=== PATIENT | female | born 1995 | race American Indian/Alaskan Native ===

== ENCOUNTER 2021-06-19 18:12 | Emergency (ER) | payer OTHER ==
[2021-06-19 18:45] VITALS: BP 106/76
[2021-06-19] MEDS ORDERED: LIDOCAINE 2% UROJECT 10 ML JELLY UR ONE (19:46)
[2021-06-19] MEDS ORDERED: IBUPROFEN 600 MG TAB PO ONE (19:47)
[2021-06-19] MEDS ORDERED: ONDANSETRON 4 MG ODT TAB PO ONE (19:47)
[2021-06-19] MEDS ORDERED: HYDROcodone/ACETAMINOPHEN 5-325 MG TAB PO ONE (19:47)
--- NOTE | 2021-06-19 22:30 | Emergency Department Report ---
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 Patient states that she applied an imiquimod ointment on this lesions and that the pain got worse in the last 24 h such that she has not been able to sleep or walk because of worsening pain. Patient denies fever, chills, vaginal bleeding, low back pain, abdominal pain, nausea and vomiting, diarrhea, cough, sore throat, headache, dyspareunia or dizziness. MD Complaint: vaginal discharge, dysuria, possible STD, other (Painful genital lesions) -: Sudden, days(s) (3) Location: labia, perineum Radiation: non-radiating Severity: severe Severity scale (0 -10): 9 Quality: sharp, burning Consistency: constant Improves with: none Worsens with: urination, movement Are you Now?: No Last Menstrual Period: 06/06/21 EDC: 03/13/22 Associated Symptoms: denies other symptoms, vaginal discharge, dysuria, rash (Painful vaginal lesions with thick purulent discharge). denies: vaginal bleeding, abdominal pain, nausea/vomiting, fever/chills, headaches, loss of appetite, hematuria, seizure, shortness of breath, syncope, weakness - Related Data Sexually active: Yes : 0 Para: 0 A: 0 Previous Rx's Medication Instructions Recorded Last Taken Type Acetaminophen/Codeine [Tylenol 1 tab PO Q6H PRN #10 tab 06/19/21 Unknown Rx /Codeine # 3 tab] Acyclovir [Acyclovir Ointment] 1 applicatio TP Q8H #1 tube 06/19/21 Unknown Rx Acyclovir [Zovirax Tab] 400 mg PO Q8H #30 tab 06/19/21 Unknown Rx Dibucaine [Hemorrhoidal-Analgesic] 1 applicatio TP Q6H PRN #1 tube 06/19/21 Unknown Rx Ibuprofen [Motrin] 600 mg PO Q8H PRN #30 tablet 06/19/21 Unknown Rx metroNIDAZOLE [Flagyl] 500 mg PO Q12HR #14 tab 06/19/21 Unknown Rx Allergies Allergy/AdvReac Type Severity Reaction Status Date / Time No Known Allergies Allergy Verified 06/19/21 19:51 ED Review of Systems ROS: Stated complaint: VAGINAL BURNING Other details as noted in HPI Constitutional: denies: chills, fever Eyes: denies: eye pain, eye discharge, vision change ENT: denies: ear pain, throat pain Respiratory: denies: cough, shortness of breath, wheezing Cardiovascular: denies: chest pain, palpitations Endocrine: no symptoms reported Gastrointestinal: denies: abdominal pain, nausea, diarrhea Genitourinary: urgency, dysuria, frequency, discharge, other (Painful erythematous ulcerated vaginal lesions in the labia and perineum with bleeding) Musculoskeletal: denies: back pain, joint swelling, arthralgia Skin: lesions (Painful ulcerated erythematous lesions with purulent discharge and bleeding in the labia and perineum), change in color. denies: rash Neurological: denies: headache, weakness, paresthesias Psychiatric: denies: anxiety, depression Hematological/Lymphatic: denies: easy bleeding, easy bruising ED Past Medical Hx - Past Medical History Previous Medical History?: Yes Additional medical history: HPV, Right breast cyst and left breast cyst - Surgical History Past Surgical History?: Yes Hx Breast Surgery: Yes (Right breast removall of cyst) - Social History Smoking Status: Never Smoker Substance Use Type: Alcohol - Medications Home Medications: Home Medications Medication Instructions Recorded Confirmed Last Taken Type Acetaminophen/Codeine [Tylenol 1 tab PO Q6H PRN #10 tab 06/19/21 Unknown Rx /Codeine # 3 tab] Acyclovir [Acyclovir Ointment] 1 applicatio TP Q8H #1 tube 06/19/21 Unknown Rx Acyclovir [Zovirax Tab] 400 mg PO Q8H #30 tab 06/19/21 Unknown Rx Dibucaine [Hemorrhoidal-Analgesic] 1 applicatio TP Q6H PRN #1 tube 06/19/21 Unknown Rx Ibuprofen [Motrin] 600 mg PO Q8H PRN #30 tablet 06/19/21 Unknown Rx metroNIDAZOLE [Flagyl] 500 mg PO Q12HR #14 tab 06/19/21 Unknown Rx ED Physical Exam - General Limitations: No Limitations General appearance: alert, in no apparent distress - Head Head exam: Present: atraumatic, normocephalic, normal inspection - Eye Eye exam: Present: normal appearance, PERRL, EOMI Pupils: Present: normal accommodation - ENT ENT exam: Present: normal exam, normal orophraynx, mucous membranes moist, TM's normal bilaterally, normal external ear exam - Neck Neck exam: Present: normal inspection, full ROM - Respiratory Respiratory exam: Present: normal lung sounds bilaterally. Absent: respiratory distress, wheezes, rales, rhonchi, chest wall tenderness, accessory muscle use, decreased breath sounds, prolonged expiratory - Cardiovascular Cardiovascular Exam: Present: regular rate, normal rhythm, normal heart sounds. Absent: systolic murmur, diastolic murmur, rubs, gallop - GI/Abdominal GI/Abdominal exam: Present: soft, normal bowel sounds. Absent: tenderness, guarding, rebound, hyperactive bowel sounds, hypoactive bowel sounds, organomegaly - External exam: Present: erythema, lesions (Ulcerated severely tender bleeding lesions in the perineum and labia), bleeding Speculum exam: Present: vaginal discharge (Thick purulent yellowish-green bloody discharge) Bi-manual exam: Present: other (Female provider field foreman present Gordon Storey) - Extremities Exam Extremities exam: Present: normal inspection, full ROM, normal capillary refill - Back Exam Back exam: Present: normal inspection, full ROM. Absent: tenderness, CVA tenderness (R), CVA tenderness (L), muscle spasm, paraspinal tenderness, vertebral tenderness - Neurological Exam Neurological exam: Present: alert, oriented X3, CN II-XII intact, normal gait, reflexes normal - Psychiatric Psychiatric exam: Present: normal affect, normal mood - Skin Skin exam: Present: warm, dry, intact, normal color. 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 Patient states that she applied an imiquimod ointment on this lesions and that the pain got worse in the last 24 h such that she has not been able to sleep or walk because of worsening pain. In the ED, patient is alert and oriented x3 and is not in any distress but appears to be in pain. Pelvic exam performed in the presence of female provider field foreman Ms. Reynaldo Mckinney PA-C revealed multiple ulcerated severely tender lesions with thick greenish-yellowish and bloody purulent discharge throughout the perineum and labia as well as in the clitoral area. Patient could barely tolerate the physical exam. Patient was treated in the ED for pain and urinalysis is unremarkable. Patient symptoms are likely due to genital herpes breakout. Patient was discharged home on medications and advised to follow-up with her [facility] physician or [facility] department for further evaluation. Patient was advised to return to the ED immediately if symptoms get worse. - Differential Diagnosis Genital herpes; folliculitis; trichomonas; bacterial vaginosis; UTI Critical care attestation.: If time is entered above; I have spent that time in minutes in the direct care of this critically ill patient, excluding procedure time. ED Disposition Clinical Impression: Genital herpes in women, Vaginal discharge, Bacterial vaginosis Disposition: 01 HOME / SELF CARE / HOMELESS Is pt being admited?: No Does the pt Need Aspirin: No Condition: Stable Instructions: Bacterial Vaginosis (ED), Bacterial Vaginosis, [id number], Vaginitis, [id number], Genital Herpes Additional Instructions: Take medication as advised with food, apply the prescribed ointment to the affected area for pain relief, follow-up with the [facility] or your primary care physician in 7 to 10 days for reevaluation or follow-up. Return to the ED immediately if symptoms get worse. Ensure you observe safe sexual practices. Prescriptions: Acyclovir [Acyclovir Ointment] 1 applicatio TP Q8H #1 tube metroNIDAZOLE [Flagyl] 500 mg PO Q12HR #14 tab Dibucaine [Hemorrhoidal-Analgesic] 1 applicatio TP Q6H PRN #1 tube PRN Reason: Severe pain Ibuprofen [Motrin] 600 mg PO Q8H PRN #30 tablet PRN Reason: Pain Acetaminophen/Codeine [Tylenol /Codeine # 3 tab] 1 tab PO Q6H PRN #10 tab PRN Reason: Severe pain Acyclovir [Zovirax Tab] 400 mg PO Q8H #30 tab Referrals: [facility] [Provider Group] - 7-10 days [facility] [Outside] - 7-10 days Forms: STI Treatment and Prevention, Work/School Release Form(ED) Time of Disposition: 22:31 Print Language: UPPER SORBIAN
[2021-06-19 22:34] LABS: HCG Qualitative,Urine Negative (Negative)
[2021-06-19 22:39] LABS: Bacteria,Urine 1+ /HPF (Negative); Bilirubin,Urine NEG (Negative); Blood,Urine NEG (Negative); Color,Urine Straw (Yellow); Mucus,Urine FEW /HPF; Protein,Urine <15 mg/dL mg/dL (Negative); Urobilinogen,Urine < 2.0 mg/dL (<2.0)
== END 2021-06-19 23:59 | disposition home or self-care (01) ==
LOC: ED 18:12
DX: A60.00 Herpesviral infection of urogenital system, unspecified (principal); N76.0 Acute vaginitis; B96.89 Other specified bacterial agents as the cause of diseases classified elsewhere; Z98.890 Other specified postprocedural states; Z72.89 Other problems related to lifestyle; Z79.899 Other long term (current) drug therapy
CPT/HCPCS: 81001; 81025; 99283; 99284; Q0162

== ENCOUNTER 2021-09-16 10:04 | Emergency (ER) | payer OTHER ==
[2021-09-16] MEDS ORDERED: IBUPROFEN 600 MG TAB PO ONE (12:40)
--- NOTE | 2021-09-16 12:40 | Emergency Department Report ---
Minor Respiratory - HPI Chief Complaint: Upper Respiratory Infection Stated Complaint: body aches Time Seen by Provider: 09/16/21 12:02 Duration: 2 Days Minor Respiratory: Yes Able to Tolerate Fluids, Yes Sick Contacts, Yes Fever, No Rhinorrhea, No Sore Throat, No Ear Pain, No Cough, No Chest Pain, No Shortness of Breath Other History: 25-year-old -[place] female who was vaccinated for Covid with her second dose in July presents to the emergency room for fever chills body aches nausea headache and fatigue. Patient is taking nothing for her symptoms or pain. She is visiting from [place]. She has no past medical history currently takes no meds and has no known drug allergies. ED Review of Systems ROS: Stated complaint: body aches Other details as noted in HPI Comment: All other systems reviewed and negative Constitutional: chills, fever, malaise Respiratory: denies: cough, shortness of breath, wheezing ED Past Medical Hx - Past Medical History Additional medical history: HPV, Right breast cyst and left breast cyst - Surgical History Hx Breast Surgery: Yes (Right breast removall of cyst) - Social History Smoking Status: Never Smoker Substance Use Type: Alcohol - Medications Home Medications: Home Medications Medication Instructions Recorded Confirmed Last Taken Type Acetaminophen/Codeine [Tylenol 1 tab PO Q6H PRN #10 tab 06/19/21 Unknown Rx /Codeine # 3 tab] Acyclovir [Acyclovir Ointment] 1 applicatio TP Q8H #1 tube 06/19/21 Unknown Rx Acyclovir [Zovirax Tab] 400 mg PO Q8H #30 tab 06/19/21 Unknown Rx Dibucaine [Hemorrhoidal-Analgesic] 1 applicatio TP Q6H PRN #1 tube 06/19/21 Unknown Rx Ibuprofen [Motrin] 600 mg PO Q8H PRN #30 tablet 06/19/21 Unknown Rx metroNIDAZOLE [Flagyl] 500 mg PO Q12HR #14 tab 06/19/21 Unknown Rx Minor Respiratory Exam - Exam General: Vital signs noted. No distress. Alert and acting appropriately. HEENT: Yes Moist Mucous Membranes, No Pharyngeal Erythema, No Pharyngeal Exudates, No Rhinorrhea, No Conjuctival Injection, No Frontal Tenderness, No Maxillary Tenderness Ear: Neither TM Bulge, Neither TM Erythema, Neither EAC Pain, Neither EAC Discharge Neck: Yes Supple, No Adenopathy Lungs: Yes Good Air Exchange, No Wheezes, No Ronchi, No Stridor, No Cough, No Labored Respirations, No Retractions, No Use of Accessory Muscles, No Other Abnormal Lung Sounds Heart: Yes Regular, No Murmur Abdomen: Yes Normal Bowel Sounds, No Tenderness, No Peritoneal Signs Skin: No Rash, No Edema Neurologic: Alert and oriented, no deficits. Musculoskeletal: Unremarkable. ED Course Vital Signs 09/16/21 10:51 Temperature 100.3 F H Pulse Rate 105 H Respiratory 18 Rate Blood Pressure 124/77 [Left] O2 Sat by Pulse 100 Oximetry ED Medical Decision Making - Lab Data Lab Results 09/16/21 Range/Units Unknown Influenza A (Rapid) Negative (Negative) Influenza B (Rapid) Negative (Negative) - Medical Decision Making 25-year-old -[place] female who was vaccinated for Covid with her second dose in July presents to the emergency room for fever chills body aches nausea headache and fatigue. Patient is taking nothing for her symptoms or pain. She is visiting from [place]. She has no past medical history currently takes no meds and has no known drug allergies. Discussed with patient it sounds like she has Covid. We will check a flu. Patient will be given Tylenol for fever. Flu negative Critical care attestation.: If time is entered above; I have spent that time in minutes in the direct care of this critically ill patient, excluding procedure time. ED Disposition Clinical Impression: Suspected COVID-19 virus infection Disposition: HOME / SELF CARE / HOMELESS Is pt being admited?: No Does the pt Need Aspirin: No Condition: Stable Instructions: COVID-19 Frequently Asked Questions, COVID-19: How to Protect Yourself and Others - CDC, Prevent the Spread of COVID-19 if You Are Sick - CDC Additional Instructions: Your symptoms appear most consistent with a nonspecific viral syndrome. However, given this current pandemic, COVID-19 is in the differential of possibilities. Despite your previous negative COVID-19 test, I do recommend repeat outpatient Covid 19 testing. In the meantime, isolate/quarantine yourself and stay away from anyone who is elderly, immunocompromised or chronically ill. You can use ibuprofen every 6-8 hours and Tylenol every 4-8 hours, using the dosing on the back of the bottle, as needed for any fever or body aches. Return to the emergency department with any worsening of your symptoms, development of chest pain or shortness of breath, or with any acute distress. Negative flu Referrals: [facility] [Provider Group] - 3-5 Days Forms: Work/School Release Form(ED) Time of Disposition: 13:46
[2021-09-16 13:49] VITALS: BP 114/71
== END 2021-09-16 13:54 | disposition home or self-care (01) ==
LOC: ED 10:04
DX: Z20.822 Contact with and (suspected) exposure to COVID-19 (principal); F17.200 Nicotine dependence, unspecified, uncomplicated
CPT/HCPCS: 87400; 99283